=== PATIENT | female | born 1995 | race Caucasian/White ===

== ENCOUNTER 2018-07-06 12:25 | Emergency (ER) | payer BC ==
--- NOTE | 2018-07-06 13:24 | EDM.PDOC ---
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 She states she has never had pain like this before. She describes it as a "soreness" that is dull/achy in nature, can be sharp with movements or when pressure is put on it. Right now pain is minimal, but at its worst can be 7/10. She has not tried any OTC pain medications at home. Her LNMP was 07/03/18, but she did note it was heavier than usual. She denies any hematuria, dysuria, F/C, N/V/D, constipation, pain with intercourse, discharge or foul smelling odors. No concern for STD- she has same partner. Currently not on control and is sexually active. She has her first [employer] appointment with Dr. Spring in August. No h/o ovarian issues in the past. 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 [No Known Home Meds] 07/06/18 [History] Past Medical History - Past Surgical History Female Surgical History: Reports: Section Social & Family History - Tobacco Use Smoking Status *Q: Never Smoker - Caffeine Use Caffeine Use: Reports: Coffee, Soda - Recreational Drug Use Recreational Drug Use: No ED ROS GENERAL - Review of Systems Review Of Systems: ROS reveals no pertinent complaints other than HPI. ED EXAM, GI/ABD - Physical Exam Exam: See Below Exam Limited By: No Limitations General Appearance: Alert, WD/WN, No Apparent Distress Eyes: Bilateral: Normal Appearance, EOMI Ears: Normal External Exam, Hearing Grossly Normal Nose: Normal Inspection, Normal Mucosa, No Blood Throat/Mouth: Normal Inspection, Normal Lips, Normal Teeth, Normal Gums, Normal Oropharynx, Normal Voice, No Airway Compromise Neck: Normal Inspection, Supple, Non-Tender, Full Range of Motion Respiratory/Chest: No Respiratory Distress, Lungs Clear, Normal Breath Sounds, No Accessory Muscle Use, Chest Non-Tender Cardiovascular: Normal Peripheral Pulses, Regular Rate, Rhythm, No Edema, No Gallop, No JVD, No Murmur, No Rub GI/Abdominal Exam: Normal Bowel Sounds, Soft, Non-Tender, No Organomegaly, No Distention, No Abnormal Bruit, No Mass, Pelvis Stable. No: Hernia Rectal (Female) Exam: Deferred Back Exam: Normal Inspection, Full Range of Motion, NT Skin Exam: Warm, Dry, Intact, Normal Color, No Rash Course - Vital Signs Last Recorded V/S: Last Vital Signs Temp 97.8 F 07/06/18 12:40 Pulse 74 07/06/18 12:40 Resp 20 07/06/18 12:40 BP 131/81 07/06/18 12:40 Pulse Ox 100 07/06/18 12:40 - Orders/Labs/Meds Labs: Laboratory Tests 07/06/18 Range/Units 13:25 Urine HCG, Qual Negative (NEGATIVE) - Re-Assessments/Exams Free Text/Narrative Re-Assessment/Exam: 07/06/18 13:24 I have ordered Urine HCG and transvaginal U/S 07/06/18 14:17 Pelvic U/S results are back. Dr. Savage read as: 1. Incidental nabothian cyst and incidental section scar. 2. Pelvic ultrasound is otherwise unremarkable. At this time, it seems that any emergent condition has been ruled out. 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 Departure - Departure Time of Disposition: 14:19 Disposition: Home, Self-Care 01 Condition: Good Clinical Impression: Pelvic pain - Discharge Information *PRESCRIPTION DRUG MONITORING PROGRAM REVIEWED*: Not Applicable *COPY OF PRESCRIPTION DRUG MONITORING REPORT IN PATIENT ELIANA: Not Applicable Instructions: Pelvic Pain, Female Referrals: Fransisca Spring MD [Primary Care Provider] - Forms: ED Department Discharge Additional Instructions: You were seen in the ED today for left lower pelvic pain. Your physical exam and workup was benign. Your urine test was negative and your transvaginal U/S showed nothing acute. At this time, it is seems reasonable to send you home with management of pain with over the counter ibuprofen and heating pad as needed. Hernia is a possibility, though not seen today, so recommend restricting the amount of weight you lift to about 8lb until you are able to be worked up further with primary care or your symptoms have resolved. Recommend follow up with primary care provider and [employer] DEVELOPER for further workup and treatment. Please return to ED if new or worsening symptoms.
--- NOTE | 2018-07-06 14:13 | US ---
Pelvic ultrasound: Multiple real-time images were obtained transvaginally. Comparison: No previous pelvic imaging. Uterus is anteverted. Small and incidental nabothian cyst is noted. No myometrial abnormality is seen. Incidental section scar is seen anteriorly. Follicles are noted within the ovaries. No larger cyst or solid abnormality is seen within the ovaries. No free fluid is seen. Measurements: Uterus: Length 8.9 cm, transverse with 5.0 cm, AP height 4.2 cm Endometrial thickness: Normal at 8 mm Right ovary: 3.2 x 2.1 x 2.0 cm Left ovary: 2.6 x 2.6 x 2.8 cm Impression: 1. Incidental nabothian cyst and incidental section scar. 2. Pelvic ultrasound is otherwise unremarkable. Diagnostic code #2
== END 2018-07-06 14:35 | disposition home or self-care (01) ==
LOC: JD.ED 12:25 → SUPCPDRO 12:25 → JD.ED 14:35
DX: R10.2 Pelvic and perineal pain (principal)
CPT/HCPCS: 76830; 76830-26; 81025; 99282; 99284-25

== ENCOUNTER 2019-04-10 08:00 | Inpatient (IN) | payer BC ==
[~2019-04-10 08:00] MED LIST: Citric Acid/Sodium Citrate Solution 30 ML Cup PO ONE; Lactated Ringers 1,000 ML IV SCH; Metoclopramide 10 MG/2 ML SDV IVPUSH ONE; Oxytocin/Lactated Ringers 10 UNIT/1,000 ML BAG IV SCH; Sodium Chloride 0.9% 10 ML Syringe FLUSH PRN; ceFAZolin 2 GM in Premix Bag 1 BAG IV ONE
[2019-04-14] MEDS ORDERED: Ondansetron 4 MG/2 ML SDV IVPUSH PRN (07:35)
[2019-04-14] MEDS ORDERED: Nalbuphine 10 MG/ML Syringe IVPUSH PRN (07:35)
[2019-04-14] MEDS ORDERED: Sodium Chloride 0.9% 10 ML Syringe FLUSH PRN (07:35)
[2019-04-14] MEDS ORDERED: ceFAZolin 2 GM in Premix Bag 1 BAG IV ONE (07:35)
[2019-04-14] MEDS ORDERED: Citric Acid/Sodium Citrate Solution 30 ML Cup PO ONE ×2 (07:35→11:00)
[2019-04-14] MEDS ORDERED: ceFAZolin 1 GM in Premix Bag 1 BAG IV ONE (07:35)
[2019-04-14] MEDS ORDERED: Metoclopramide 10 MG/2 ML SDV IVPUSH ONE ×2 (07:35→11:00)
[2019-04-14] MEDS ORDERED: Lactated Ringers 1,000 ML IV SCH ×2 (07:45→11:00)
[2019-04-14] MEDS ORDERED: Oxytocin/Lactated Ringers 10 UNIT/1,000 ML BAG IV SCH ×2 (07:45→11:00)
[2019-04-14] MEDS ORDERED: Oxytocin 10 Units/1 ML SDV ONE (09:37)
[2019-04-14] MEDS ORDERED: Morphine PF 10 MG/10 ML SDV ONE (09:37)
[2019-04-14] MEDS ORDERED: ceFAZolin 1 GM Vial ONE ×3 (09:37→11:59)
--- NOTE | 2019-04-14 10:57 | PCM.OPNOTE ---
- General Post-Op/Procedure Note Date of Surgery/Procedure: 04/14/19 Operative Procedure(s): Repeat low transverse Findings: Moderate amount of scar tissue between rectus and fascia. Minimal scarring between bladder and JUAN. Baby boy in vertex presentation. Weight of 9 lbs 0 oz. Apgars of 8 & 9. Normal appearance of fallopian tubes and ovaries Pre Op Diagnosis: 39 6/7 wks gestation. hx of x2. BMI 48 Post-Op Diagnosis: Same Anesthesia Technique: Spinal Primary Surgeon: Fransisca Sprnig Secondary Surgeon: Javi Haile Anesthesia Provider: Jai Green Reason Human Resource Advisor Was Necessary: BMI of patient. Speed/safety of procedure Pathology: Cord blood collected. Placenta discarded Fluid Replacement, Intraop: 3,000 Output, Urine Amount: 100 EBL in mLs: 900 Complications: None Condition: Good Free Text/Narrative:: The risks, benefits, indications, potential complications, and alternatives were explained to the patient and informed consent obtained. After induction of anesthesia, the patient was placed in a supine position and then draped and prepped in the usual sterile manner. A Pfannenstiel incision was made and carried down through the subcutaneous tissue to the fascia. Fascial incision was made and extended transversely. The fascia was from the underlying rectus tissue superiorly and inferiorly. The peritoneum was identified and entered. Peritoneal incision was extended longitudinally. The utero-vesical peritoneal reflection was incised transversely and the bladder flap was bluntly freed from the lower uterine segment. A low transverse uterine incision was made sharply with a scalpel and extended bluntly in a cephalocaudad direction. A baby boy was delivered from vertex presentation with aid of vacuum extraction. APGARS as above. After the umbilical cord was clamped and cut cord blood was obtained for evaluation. The placenta was removed intact and appeared normal. The uterus was exteriorized and cleared of clots. The uterine outline, tubes and ovaries appeared normal. The uterine incision was closed with running locked sutures of 0 Vicryl. Hemostasis was obtained with an imbricating layer of 0 vicryl. The uterus was then placed back into the abdomen. The infracolic gutters were cleared of blood clots. The fascia was then reapproximated with running sutures of 1PDS. The subcutaneous tissue was irrigated with sterile warm normal saline, hemostasis obtained with cautery. This layer was closed with a running 0 Vicryl suture. The skin was reapproximated with running Subcuticular 4-0 Monocryl sutures. Instrument, sponge, and needle counts were correct prior the abdominal closure and at the conclusion of the case.
[2019-04-14] MEDS ORDERED: Phenylephrine/Normal Saline 100 MCG/ML 10 ML Syringe ONE (11:58)
[2019-04-14] MEDS ORDERED: Ketorolac 30 MG/ML SDV ONE (12:10)
[2019-04-14] MEDS ORDERED: diphenhydrAMINE 50 MG/ML SDV IVPUSH PRN ×2 (12:56→13:54)
--- NOTE | 2019-04-14 12:57 | PCM.POSTAN ---
POST ANESTHESIA ASSESSMENT - MENTAL STATUS Mental Status: Alert, Oriented - VITAL SIGNS Vital Signs: Last Vital Signs Temp 36.8 C 04/14/19 10:44 Pulse 93 04/14/19 10:44 Resp 15 04/14/19 10:44 BP 107/81 04/14/19 10:44 Pulse Ox 99 04/14/19 10:44 - RESPIRATORY Respiratory Status: Respiratory Rate WNL, Airway Patent, O2 Saturation Stable - CARDIOVASCULAR CV Status: Pulse Rate WNL, Blood Pressure Stable - GASTROINTESTINAL GI Status: No Symptoms - PAIN Pain Score: 0 - POST OP HYDRATION Hydration Status: Adequate & Stable - OBSERVATIONS Free Text/Narrative:: no anesthesia complications noted
--- NOTE | 2019-04-14 12:59 | PCM.PREANE ---
Preanesthetic Assessment - Procedure Proposed Procedure: Repeat - Anesthesia/Transfusion/Family Hx Anesthesia History: Prior Anesthesia Without Reaction Family History of Anesthesia Reaction: No Transfusion History: Prior Transfusion Without Reaction - Review of Systems General: No Symptoms Pulmonary: No Symptoms Cardiovascular: Dyspnea on Exertion Gastrointestinal: No Symptoms Neurological: Numbness ("hands possible carpal tunnel") Other: Reports: None - Physical Assessment NPO Status Date: 04/14/19 NPO Status Time: 00:00 Vital Signs: Last Vital Signs Temp 36.8 C 04/14/19 10:44 Pulse 93 04/14/19 10:44 Resp 15 04/14/19 10:44 BP 107/81 04/14/19 10:44 Pulse Ox 99 04/14/19 10:44 Height: 1.57 m Weight: 119.658 kg ASA Class: 2 Mental Status: Alert & Oriented x3 Airway Class: Mallampati = 2 Dentition: Reports: Normal Dentition Thyro-Mental Finger Breadths: 3 Mouth Opening Finger Breadths: 3 ROM/Head Extension: Full Lungs: Clear to Auscultation, Normal Respiratory Effort Cardiovascular: Regular Rate, Regular Rhythm - Lab Values: Laboratory Last Values WBC 6.52 K/mm3 (3.98-10.04) 04/14/19 10:07 RBC 4.13 M/mm3 (3.98-5.22) 04/14/19 10:07 Hgb 11.2 gm/dl (11.2-15.7) 04/14/19 10:07 Hct 33.5 % (34.1-44.9) L 04/14/19 10:07 MCV 81.1 fl (79.4-94.8) 04/14/19 10:07 MCH 27.1 pg (25.6-32.2) 04/14/19 10:07 MCHC 33.4 g/dl (32.2-35.5) 04/14/19 10:07 RDW Std Deviation 43.0 fL (36.4-46.3) 04/14/19 10:07 Plt Count 256 K/mm3 (182-369) 04/14/19 10:07 MPV 10.9 fl (9.4-12.3) 04/14/19 10:07 Blood Type AB POSITIVE 04/14/19 10:07 Gel Antibody Screen Negative 04/14/19 10:07 - Allergies Allergies/Adverse Reactions: Allergies Allergy/AdvReac Type Severity Reaction Status Date / Time No Known Allergies Allergy Verified 04/14/19 10:03 - Anesthesia Plan Pre-Op Medication Ordered: Antacids - Acknowledgements Anesthesia Type Planned: Spinal Pt an Appropriate Candidate for the Planned Anesthesia: Yes Alternatives and Risks of Anesthesia Discussed w Pt/Guardian: Yes Pt/Guardian Understands and Agrees with Anesthesia Plan: Yes PreAnesthesia Questionnaire Gastrointestinal History: Reports: GERD 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: - Past Surgical History Female Surgical History: Reports: Section Other Female Surgeries/Procedures: X2 (2014, 2012) - SUBSTANCE USE Smoking Status *Q: Former Smoker Tobacco Use Within Last Twelve Months: Cigarettes Second Hand Smoke Exposure: No Recreational Drug Use History: No - HOME MEDS Home Medications: Home Meds Calcium Carbonate [Tums] 500 mg PO ASDIRECTED PRN 04/14/19 [History] Ferrous Sulfate [Iron] 325 mg PO ASDIRECTED 04/14/19 [History] Mv-Mn/Iron/FA/Herbal/Digestive [ One Tablet] 1 tab PO DAILY 04/14/19 [ History] - CURRENT (IN HOUSE) MEDS Current Meds: Current Medications Diphenhydramine HCl (Benadryl) 25 mg IVPUSH Q6H PRN PRN Reason: Itching Lactated Ringer's (Ringers, Lactated) 1,000 mls @ 125 mls/hr IV ASDIRECTED [facility] Last Admin: 04/14/19 11:26 Dose: 125 mls/hr Oxytocin/Lactated Ringer's (Pitocin In Lr 10 Units/1,000 Ml) 10 unit in 1,000 mls @ 100 mls/hr IV ASDIRECTED [facility]; Protocol Nalbuphine HCl (Nubain) 10 mg IVPUSH Q2H PRN PRN Reason: Pain Ondansetron HCl (Zofran) 4 mg IVPUSH Q4H PRN PRN Reason: Nausea/Vomiting Sodium Chloride (Saline Flush) 10 ml FLUSH ASDIRECTED PRN PRN Reason: Keep Vein Open Discontinued Medications Cefazolin Sodium (Ancef) Confirm Administered Dose 2 gm .ROUTE .STK-MED ONE Stop: 04/14/19 11:20 Cefazolin Sodium (Ancef) Confirm Administered Dose 1 gm .ROUTE .STK-MED ONE Stop: 04/14/19 12:00 Citric Acid/Sodium Citrate (Bicitra Solution) 30 ml PO ONETIME ONE Stop: 04/10/19 06:01 Citric Acid/Sodium Citrate (Bicitra Solution) 30 ml PO ONETIME ONE Stop: 04/14/19 07:36 Last Admin: 04/14/19 11:25 Dose: 30 ml Citric Acid/Sodium Citrate (Bicitra Solution) 30 ml PO ONETIME ONE Stop: 04/14/19 11:01 Last Admin: 04/14/19 11:46 Dose: Not Given Cefazolin Sodium/Dextrose 2 gm (/ Premix) 50 mls @ 100 mls/hr IV ONETIME ONE Stop: 04/10/19 07:29 Lactated Ringer's (Ringers, Lactated) 1,000 mls @ 125 mls/hr IV ASDIRECTED [facility] Oxytocin/Lactated Ringer's (Pitocin In Lr 10 Units/1,000 Ml) 10 unit in 1,000 mls @ 100 mls/hr IV ASDIRECTED [facility]; Protocol Cefazolin Sodium/Dextrose 2 gm (/ Premix) 50 mls @ 100 mls/hr IV ONETIME ONE Stop: 04/14/19 08:04 Cefazolin Sodium/Dextrose 1 gm (/ Premix) 50 mls @ 100 mls/hr IV ONETIME ONE Stop: 04/14/19 08:04 Lactated Ringer's (Ringers, Lactated) 1,000 mls @ 125 mls/hr IV ASDIRECTED [facility] Oxytocin/Lactated Ringer's (Pitocin In Lr 10 Units/1,000 Ml) 10 unit in 1,000 mls @ 100 mls/hr IV ASDIRECTED [facility]; Protocol Ketorolac Tromethamine (Toradol) Confirm Administered Dose 30 mg .ROUTE .STK- MED ONE Stop: 04/14/19 12:11 Metoclopramide HCl (Reglan) 10 mg IVPUSH ONETIME ONE Stop: 04/10/19 06:01 Metoclopramide HCl (Reglan) 10 mg IVPUSH ONETIME ONE Stop: 04/14/19 07:36 Last Admin: 04/14/19 11:24 Dose: 10 mg Metoclopramide HCl (Reglan) 10 mg IVPUSH ONETIME ONE Stop: 04/14/19 11:01 Last Admin: 04/14/19 11:46 Dose: Not Given Phenylephrine HCl (Phenylephrine In Ns 100 Mcg/Ml) Confirm Administered Dose 1 mg .ROUTE .STK-MED ONE Stop: 04/14/19 11:59 Sodium Chloride (Saline Flush) 10 ml FLUSH ASDIRECTED PRN PRN Reason: Keep Vein Open
[2019-04-14] MEDS ORDERED: Ondansetron 4 MG/2 ML SDV IV PRN (13:54)
[2019-04-14] MEDS ORDERED: ePHEDrine 50 MG/ML SDV IVPUSH PRN (13:54)
[2019-04-14] MEDS ORDERED: Dextrose 5%-Lactated Ringers 1,000 ML IV SCH (13:54)
[2019-04-14] MEDS ORDERED: Naloxone 0.4 MG/ML SDV IVPUSH PRN (13:54)
[2019-04-14] MEDS: Ketorolac 30 MG/ML SDV IVPUSH SCH (18:27)
[2019-04-14] MEDS ORDERED: Sodium Chloride 0.9% 500 ML IV ONE (20:24)
[2019-04-14] MEDS ORDERED: Sodium Chloride 0.9% 500 ML ONE (20:26)
[2019-04-15] MEDS ORDERED: Sodium Chloride 0.9% 500 ML ONE (00:06)
[2019-04-15] MEDS ORDERED: Dextrose 5%-Lactated Ringers 1,000 ML IV SCH (00:15)
[2019-04-15] MEDS: Ketorolac 30 MG/ML SDV IVPUSH SCH ×2 (00:21→06:30)
--- NOTE | 2019-04-15 09:06 | PCM.SN ---
- Free Text/Narrative Note: note: Postoperative day #1?status post repeat section Patient is doing well in the period. Minimal lochia, voiding well, ambulated without problems. Nursing without concerns. Patient is afebrile, vital signs are stable Lungs are clear with good breath sounds in all lung londono. Cardiovascular exam shows regular rate and rhythm. Abdomen is flat, soft, uterus is below the umbilicus and is firm and nontender. Positive bowel sounds are noted. Dressing is removed. Steri-Strips are intact, incision appears dry. Legs are nontender. Assessment: recovery going well.She had a short period last evening of decreased urine output but now is diuresing well. IV is saline locked. Indwelling catheter has been removed. Plan: Routine postop care. Patient desires to be discharged home within the next 24-48 hours.
[2019-04-15] MEDS: Acetaminophen/oxyCODONE 325-5 MG Tab PO PRN ×3 (09:48→16:37)
[2019-04-15] MEDS ORDERED: Ibuprofen 600 MG Tab PO PRN (12:00)
--- NOTE | 2019-04-15 13:03 | PCM48HPAN ---
Post Anesthesia Note - EVALUATION WITHIN 48HRS OF ANESTHETIC Vital Signs in Normal Range: Yes Patient Participated in Evaluation: Yes Respiratory Function Stable: Yes Airway Patent: Yes Cardiovascular Function Stable: Yes Hydration Status Stable: Yes Pain Control Satisfactory: Yes Nausea and Vomiting Control Satisfactory: Yes Mental Status Recovered: Yes Vital Signs: Last Vital Signs Temp 36.6 C 04/15/19 08:44 Pulse 82 04/15/19 08:45 Resp 16 04/15/19 10:00 BP 101/57 L 04/15/19 08:44 Pulse Ox 97 04/15/19 10:00 - COMMENTS/OBSERVATIONS Free Text/Narrative:: no anesthesia complications noted
[2019-04-15] MEDS ORDERED: Sodium Chloride 0.9% 500 ML IV ONE (23:59)
[2019-04-16] MEDS: Acetaminophen/oxyCODONE 325-5 MG Tab PO PRN ×2 (00:31→07:53)
--- NOTE | 2019-04-16 09:44 | PCM.DCSUM1 ---
Discharge Summary - Hospital Course Free Text/Narrative:: Jesús is a 23-year-old multigravida femaleWas admitted for elective repeat section on 04/14/2019. She underwent a repeat section delivering 9 lbs. 0 oz. male infant with Apgars of 8 and 9. He 9-6/7 weeks at the time of the section. Risk factors for section for history of 2 C-sections prior to this one. Also BMI of 48. No anesthesia for the C- section. Postoperatively patient is nursing. She has had good bowel, bladder, ambulatory recovery. Her vital signs stable. On the first postoperative day her hemoglobin dropped to 8.7. She however had no signs of any hemorrhage and repeat hemoglobin on second postoperative day was 8.6 indicating stability in her system. She is doing well clinically with this anemia. The be due to blood loss anemia in addition to anemia. She has been on iron for her anemia in the preoperative period. Patient is desiring discharge home today. Condition: Good Diagnosis: Stroke: No - Discharge Data Discharge Date: 04/16/19 Discharge Disposition: Home, Self-Care 01 Condition: Good - Referral to Home Health Primary Care Physician: Fransisca Spring MD - Patient Summary/Data Operative Procedure(s) Performed: Repeat low transverse - Patient Instructions Diet: Regular Diet as Tolerated (Nursing diet with increased calories and calcium as recommended) Activity: As Tolerated (No intercourse or tampons until bleeding resolves. No lifting greater than 15 pounds or driving a car 1 week.) Driving: Do Not Drive Showering/Bathing: May Shower Wound/Incision Care: Keep Operative Site/Wound Site Clean and Dry Notify Provider of: Fever, Increased Pain, Swelling and Redness, Drainage, Nausea and/or Vomiting - Discharge Plan Home Medications: Home Meds Calcium Carbonate [Tums] 500 mg PO ASDIRECTED PRN 04/14/19 [History] Mv-Mn/Iron/FA/Herbal/Digestive [ One Tablet] 1 tab PO DAILY 04/14/19 [ History] Acetaminophen/oxyCODONE [Percocet 325-5 MG] 2 tab PO Q4H PRN tablet 04/16/19 [ Rx] Ferrous Sulfate [Iron] 325 mg PO BID #0 04/16/19 [Rx] Ibuprofen [Motrin] 600 mg PO Q6H PRN tablet 04/16/19 [Rx] Referrals: Fransisca Spring MD [Primary Care Provider] - (Patient to call [facility] for post operative appointment.) - Discharge Summary/Plan Comment DC Time >30 min.: No Discharge Summary/Plan Comment: Discharge instructions: 1. Discharge home 2. Diet, activity and follow-up discussed with patient. Recommend nursing diet with increased calories and calcium. 3. Precautions given concern increased pain, bleeding, temperature, signs/ symptoms of DVT/PE. 4. Medications per home medication was printed, discussed with and given to the patient. 5. Return to clinic-Dr. Spring, patient to call for appointment. Diagnosis: 1. Term -delivered a repeat section 2. Anemia secondary to and acute blood loss at time of surgery 3. macrosomia Condition: Good - Patient Data Vitals - Most Recent: Last Vital Signs Temp 37.1 C 04/16/19 09:00 Pulse 87 04/16/19 09:00 Resp 16 04/16/19 09:00 BP 122/81 04/16/19 09:00 Pulse Ox 99 04/16/19 09:00 Weight - Most Recent: 119.658 kg I&O - Last 24 hours: Intake & Output 04/15/19 04/16/19 04/16/19 22:59 06:59 14:59 Intake Total 60 Balance 60 Lab Results - Last 24 hrs: Laboratory Results - last 24 hr 04/16/19 Range/Units 05:01 WBC 8.43 (3.98-10.04) K/mm3 RBC 3.15 L (3.98-5.22) M/mm3 Hgb 8.6 L (11.2-15.7) gm/dl Hct 26.4 L (34.1-44.9) % MCV 83.8 (79.4-94.8) fl MCH 27.3 (25.6-32.2) pg MCHC 32.6 (32.2-35.5) g/dl RDW Std Deviation 44.0 (36.4-46.3) fL Plt Count 202 (182-369) K/mm3 MPV 10.8 (9.4-12.3) fl Neut % (Auto) 64.3 (34.0-71.1) % Lymph % (Auto) 26.5 (19.3-51.7) % [place] % (Auto) 7.6 (4.7-12.5) % Eos % (Auto) 1.2 (0.7-5.8) Baso % (Auto) 0.2 (0.1-1.2) % Neut # (Auto) 5.42 (1.56-6.13) K/mm3 Lymph # (Auto) 2.23 (1.18-3.74) K/mm3 [place] # (Auto) 0.64 H (0.24-0.36) K/mm3 Eos # (Auto) 0.10 (0.04-0.36) K/mm3 Baso # (Auto) 0.02 (0.01-0.08) K/mm3 Med Orders - Current: Current Medications Diphenhydramine HCl (Benadryl) 25 mg IVPUSH Q6H PRN PRN Reason: Itching or Nausea Ephedrine Sulfate (Ephedrine Sulfate) 5 mg IVPUSH SEECOMMENT PRN PRN Reason: Other Dextrose/Lactated Ringer's (Dextrose 5%-Lactated Ringers) 1,000 mls @ 150 mls/ hr IV ASDIRECTED [facility] Last Admin: 04/15/19 01:36 Dose: 150 mls/hr Ibuprofen (Motrin) 600 mg PO Q6H PRN PRN Reason: mild pain or fever Naloxone HCl (Narcan) 0.1 mg IVPUSH SEECOMMENT PRN PRN Reason: Respiratory Depression Ondansetron HCl (Zofran) 4 mg IV Q8H PRN PRN Reason: Nausea/Vomiting Last Admin: 04/14/19 16:58 Dose: 4 mg Oxycodone/Acetaminophen (Percocet 325-5 Mg) 2 tab PO Q4H PRN PRN Reason: Pain (severe 7-10) Last Admin: 04/16/19 07:53 Dose: 2 tab Discontinued Medications Cefazolin Sodium (Ancef) Confirm Administered Dose 2 gm .ROUTE .STK-MED ONE Stop: 04/14/19 11:20 Cefazolin Sodium (Ancef) Confirm Administered Dose 1 gm .ROUTE .STK-MED ONE Stop: 04/14/19 12:00 Citric Acid/Sodium Citrate (Bicitra Solution) 30 ml PO ONETIME ONE Stop: 04/10/19 06:01 Last Admin: 04/14/19 14:10 Dose: Not Given Citric Acid/Sodium Citrate (Bicitra Solution) 30 ml PO ONETIME ONE Stop: 04/14/19 07:36 Last Admin: 04/14/19 11:25 Dose: 30 ml Citric Acid/Sodium Citrate (Bicitra Solution) 30 ml PO ONETIME ONE Stop: 04/14/19 11:01 Last Admin: 04/14/19 11:46 Dose: Not Given Diphenhydramine HCl (Benadryl) 25 mg IVPUSH Q6H PRN PRN Reason: Itching Cefazolin Sodium/Dextrose 2 gm (/ Premix) 50 mls @ 100 mls/hr IV ONETIME ONE Stop: 04/10/19 07:29 Lactated Ringer's (Ringers, Lactated) 1,000 mls @ 125 mls/hr IV ASDIRECTED [facility] Oxytocin/Lactated Ringer's (Pitocin In Lr 10 Units/1,000 Ml) 10 unit in 1,000 mls @ 100 mls/hr IV ASDIRECTED [facility]; Protocol Cefazolin Sodium/Dextrose 2 gm (/ Premix) 50 mls @ 100 mls/hr IV ONETIME ONE Stop: 04/14/19 08:04 Last Admin: 04/14/19 14:09 Dose: Not Given Cefazolin Sodium/Dextrose 1 gm (/ Premix) 50 mls @ 100 mls/hr IV ONETIME ONE Stop: 04/14/19 08:04 Last Admin: 04/14/19 14:08 Dose: Not Given Lactated Ringer's (Ringers, Lactated) 1,000 mls @ 125 mls/hr IV ASDIRECTED [facility] Oxytocin/Lactated Ringer's (Pitocin In Lr 10 Units/1,000 Ml) 10 unit in 1,000 mls @ 100 mls/hr IV ASDIRECTED [facility]; Protocol Lactated Ringer's (Ringers, Lactated) 1,000 mls @ 125 mls/hr IV ASDIRECTED [facility] Last Admin: 04/14/19 11:26 Dose: 125 mls/hr Oxytocin/Lactated Ringer's (Pitocin In Lr 10 Units/1,000 Ml) 10 unit in 1,000 mls @ 100 mls/hr IV ASDIRECTED [facility]; Protocol Dextrose/Lactated Ringer's (Dextrose 5%-Lactated Ringers) 1,000 mls @ 125 mls/ hr IV ASDIRECTED [facility] Stop: 04/14/19 21:53 Last Infusion: 04/14/19 22:04 Dose: 125 mls/hr Sodium Chloride (Normal Saline) 500 mls @ 999 mls/hr IV ONETIME ONE Stop: 04/14/19 20:54 Last Admin: 04/14/19 20:37 Dose: 999 mls/hr Sodium Chloride (Normal Saline) Confirm Administered Dose 500 mls @ as directed .ROUTE .STK-MED ONE Stop: 04/14/19 20:27 Last Admin: 04/14/19 20:37 Dose: Not Given Sodium Chloride (Normal Saline) 500 mls @ 999 mls/hr IV ONETIME ONE Stop: 04/16/19 00:29 Sodium Chloride (Normal Saline) Confirm Administered Dose 500 mls @ as directed .ROUTE .STK-MED ONE Stop: 04/15/19 00:07 Last Admin: 04/15/19 00:51 Dose: Not Given Ketorolac Tromethamine (Toradol) Confirm Administered Dose 30 mg .ROUTE .STK- MED ONE Stop: 04/14/19 12:11 Ketorolac Tromethamine (Toradol) 30 mg IVPUSH Q6H [facility] Stop: 04/15/19 06:31 Last Admin: 04/15/19 06:30 Dose: 30 mg Metoclopramide HCl (Reglan) 10 mg IVPUSH ONETIME ONE Stop: 04/10/19 06:01 Last Admin: 04/14/19 14:10 Dose: Not Given Metoclopramide HCl (Reglan) 10 mg IVPUSH ONETIME ONE Stop: 04/14/19 07:36 Last Admin: 04/14/19 11:24 Dose: 10 mg Metoclopramide HCl (Reglan) 10 mg IVPUSH ONETIME ONE Stop: 04/14/19 11:01 Last Admin: 04/14/19 11:46 Dose: Not Given Nalbuphine HCl (Nubain) 10 mg IVPUSH Q2H PRN PRN Reason: Pain Ondansetron HCl (Zofran) 4 mg IVPUSH Q4H PRN PRN Reason: Nausea/Vomiting Phenylephrine HCl (Phenylephrine In Ns 100 Mcg/Ml) Confirm Administered Dose 1 mg .ROUTE .STK-MED ONE Stop: 04/14/19 11:59 Sodium Chloride (Saline Flush) 10 ml FLUSH ASDIRECTED PRN PRN Reason: Keep Vein Open Sodium Chloride (Saline Flush) 10 ml FLUSH ASDIRECTED PRN PRN Reason: Keep Vein Open
== END 2019-04-16 12:10 | disposition home or self-care (01) | DRG 540 ==
LOC: JD.OB 04-14 09:44
PROVIDERS: ADMIT Obstetrics & Gynecology; ATTEND Obstetrics & Gynecology
PROC: 10D00Z1 Extraction of Products of Conception, Low, Open Approach (ICD-10-PCS; principal; 2019-04-14)
DX: O34.211 Maternal care for low transverse scar from previous cesarean delivery (principal); O99.02 Anemia complicating childbirth; D62 Acute posthemorrhagic anemia; Z37.0 Single live birth; Z3A.39 39 weeks gestation of pregnancy; Z87.891 Personal history of nicotine dependence
CPT/HCPCS: 01961; 36415; 59025; 85025; 85027; 86592; 86850; 86900; 86901; A9270-GY; J0690; J1885; J2270; J2370; J2405; J2590; J2765; J7040; J7120; J7121

== ENCOUNTER 2020-01-09 20:33 | Emergency (ER) | payer BC, MEDICAID ==
--- NOTE | 2020-01-09 21:33 | EDM.PDOC ---
ED HPI GENERAL MEDICAL PROBLEM - General Chief Complaint: [employer] FIN[employer] Problem Stated Complaint: 6wks pg abdominal cramps Time Seen by Provider: 01/09/20 21:09 Source of Information: Reports: Patient History Limitations: Reports: No Limitations - History of Present Illness INITIAL COMMENTS - FREE TEXT/NARRATIVE: Mrs. Tyler is a 24-year-old woman, , who now presents the ED stating that she had a positive home test about a week ago. Her LMP was 11/20/2019, giving her a gestational age of 7 weeks 1 day by dates, with an STAN of 08/26/2020. She states that she developed pelvic cramps and had a small amount of spotting this past 01/05/2020, and has experienced intermittent pelvic cramps since, with no additional spotting. She has taken Tylenol for her di scomfort, with incomplete relief. She presented to the ED tonight because, she states, her cramps were particularly bad, and because she did not experience pelvic cramps with prior pregnancies. She has not contacted her Automobile Assembly Supervisor about her condition. Here in the ED, the patient is found to be hemodynamically stable, afebrile, saturating 98% on room air. Prior to 3 days ago, the patient denies having a recent fever, chills, sore throat, ear pain, nasal or sinus congestion, cough, dyspnea, chest pain, palpitations, nausea, vomiting, constipation, diarrhea, abdominal pain, urinary symptoms, recent weight gain or weight loss, recent bloody bowel movements or black bowel movements, recent joint aches, headaches, or rashes. The patient does not have a PCP. Her Automobile Assembly Supervisor is Dr. Fransisca pSring. The patient has an appointment to see her next week. Pelvic Pain Score (Numeric/FACES): 2 - Related Data Allergies Allergy/AdvReac Type Severity Reaction Status Date / Time No Known Allergies Allergy Verified 01/09/20 20:50 Home Meds: Home Meds Calcium Carbonate [Tums] 500 mg PO ASDIRECTED PRN 04/14/19 [History] Mv-Mn/Iron/FA/Herbal/Digestive [ One Tablet] 1 tab PO DAILY 04/14/19 [History] Acetaminophen/oxyCODONE [Percocet 325-5 MG] 2 tab PO Q4H PRN tablet 04/16/19 [ Rx] Ferrous Sulfate [Iron] 325 mg PO BID #0 04/16/19 [Rx] Ibuprofen [Motrin] 600 mg PO Q6H PRN tablet 04/16/19 [Rx] Past Medical History Gastrointestinal History: Reports: GERD (untreated) [employer] FIN[employer] History: Reports: Therapeutic (x 1) : 5 Para: 3 - Past Surgical History HEENT Surgical History: Reports: Oral Surgery (2 wisdom teeth extracted) Female Surgical History: Reports: Section (x 3) Social & Family History - Family History Family Medical History: Noncontributory - Tobacco Use Smoking Status *Q: Former Smoker Years of Tobacco use: 2 Packs/Tins Daily: 0.1 Month/Year Tobacco Last Used: Quit 2017 Second Hand Smoke Exposure: No - Alcohol Use Alcohol Use History: Yes Alcohol Use Frequency: Rarely (when not ) - Recreational Drug Use Recreational Drug Use: No - Living Situation & Occupation Living situation: Reports: (), with Family (3 sons) Occupation: Employed ([employer]) ED ROS GENERAL - Review of Systems Review Of Systems: Comprehensive ROS is negative, except as noted in HPI. ED EXAM - Physical Exam Exam: See Below Exam Limited By: No Limitations General Appearance: Alert, WD/WN, No Apparent Distress Eye Exam: Bilateral Eye: EOMI, Normal Inspection Ears: Normal External Exam, Hearing Grossly Normal Nose: Normal Inspection Throat/Mouth: Normal Inspection, Normal Lips, Normal Voice, No Airway Compromise Head: Atraumatic, Normocephalic Neck: Normal Inspection, Full Range of Motion Respiratory/Chest: No Respiratory Distress, Lungs Clear, Normal Breath Sounds, No Accessory Muscle Use Cardiovascular: Normal Peripheral Pulses, Regular Rate, Rhythm, No Edema, No Gallop, No JVD, No Murmur, No Rub GI/Abdominal Exam: Normal Bowel Sounds, Soft, Non-Tender, No Organomegaly, No Distention, No Abnormal Bruit, No Mass Back Exam: Normal Inspection, Full Range of Motion, NT Extremities: Normal Inspection, Normal Range of Motion, No Pedal Edema, Normal Capillary Refill Neurological: Alert, Oriented, Normal Cognition, No Motor/Sensory Deficits Psychiatric: Normal Affect Skin Exam: Warm, Dry, Intact, Normal Color, No Rash Course - Vital Signs Last Recorded V/S: Last Vital Signs Temp 36.9 C 01/09/20 20:47 Pulse 92 01/09/20 20:47 Resp 18 01/09/20 20:47 BP 114/81 01/09/20 20:47 Pulse Ox 98 01/09/20 20:47 - Orders/Labs/Meds Orders: Active Orders 24 hr Category Date Time Status OB Transvaginal [US] Stat Exams 01/09/20 21:29 Taken Labs: Laboratory Tests 01/09/20 Range/Units 21:45 HCG, Quant 65287.0 mIU/mL - Re-Assessments/Exams Free Text/Narrative Re-Assessment/Exam: 01/09/20 21:30 As above, the patient had a positive test last week, with an LMP of 11/20/2019, giving her a gestational age of 7 weeks 1 day by dates, with an STAN of 08/26/2020. She reports having some pelvic cramps and spotting on 01/05/2020, with intermittent cramps without spotting since. She is hemodynamically stable, and her physical exam is unremarkable. Her blood type is AB+. I have ordered a work-up that includes a quantitative hCG and a pelvic ultrasound, along with a send-out swab for the SARS-CoV-2 virus. 01/09/20 22:52 The patient's quantitative hCG is 19,483. Pelvic ultrasound is read by [facility] as: 1. Sonographic features suggest an early intrauterine gestation at approximately 6 weeks gestational age. Cardiac activity is documented at 112 bpm. 2. Recommend follow-up beta HCG and follow-up ultrasound to evaluate for normal progression of this early gestation. 01/09/20 23:31 Test results discussed with the patient. I will discharge her home, to follow- up with Dr. Spring at her previously scheduled appointment next week. She may take [id number] acetaminophen as needed for discomfort. Departure - Departure Time of Disposition: 23:32 Disposition: Home, Self-Care 01 Condition: Good Clinical Impression: First trimester , Discomfort during - Discharge Information *PRESCRIPTION DRUG MONITORING PROGRAM REVIEWED*: Not Applicable *COPY OF PRESCRIPTION DRUG MONITORING REPORT IN PATIENT ELIANA: Not Applicable Instructions: First Trimester of , [id number] Referrals: Fransisca Spring MD [Primary Care Provider] - Forms: ED Department Discharge Additional Instructions: You were seen in the emergency room after having a positive test last week, then experiencing pelvic cramps and spotting 3 days ago, then pelvic cramps ever since. Work-up in the ER included a quantitative hCG ( hormone level) and a pelvic ultrasound. You were also swabbed for the SARS-CoV-2 virus. Your quantitative hCG returned at 19,483, which is appropriate for your gestational age. Your blood type is AB-Pos. The pelvic ultrasound confirmed an intrauterine , and ruled out an ectopic . At this time, the estimated gestational age is 6 weeks, however, at this early stage of , the estimation is not all that accurate. You will be notified of the results of your test for the SARS-CoV-2 virus within the next 48 to 72 hours. You may take mlhg-tuj-trjaule acetaminophen (Tylenol) as needed for discomfort. Continue to take your vitamins. Make sure that they contain folate or folic acid. Follow-up with your SHEET ROCK FINISHER, Dr. Fransisca Spring, at your previously scheduled appointment, next week. If any other problems, please do not hesitate to return to the ER. Sepsis Event Note (ED) - Evaluation Sepsis Screening Result: No Definite Risk - Focused Exam Vital Signs: Vital Signs Temp Pulse Resp BP Pulse Ox 01/09/20 20:47 36.9 C 92 18 114/81 98 - My Orders Last 24 Hours: My Active Orders 01/09/20 21:29 OB Transvaginal [US] Stat - Assessment/Plan Last 24 Hours: My Active Orders 01/09/20 21:29 OB Transvaginal [US] Stat
--- NOTE | 2020-01-10 06:20 | US ---
First trimester obstetrical ultrasound: Multiple real-time images were obtained transvaginally. Comparison: No prior study for current is available. Dates: Current ultrasound: STAN is 09/04/20, gestational age 5 weeks 6 days Single intrauterine gestational sac is seen. Small pole is noted. Maternal ovaries show no discrete abnormality. Measurements: [place]-rump length: 0.25 cm - 5 weeks 6 days Heart rate: 112 bpm Impression: Single intrauterine gestation. Dates as noted above. 2. No discrete complicating abnormality is seen at this time. 3. Recommend follow-up study in 2 weeks to confirm normal developing . Diagnostic code #1 This report was dictated in MDT I agree with preliminary report from [place], finalized on 01/09/20 [place] Daylight Time
== END 2020-01-09 23:42 | disposition home or self-care (01) ==
LOC: JD.ED 20:33
DX: O99.89 Other specified diseases and conditions complicating pregnancy, childbirth and the puerperium (principal); R10.2 Pelvic and perineal pain; Z87.891 Personal history of nicotine dependence; Z3A.01 Less than 8 weeks gestation of pregnancy
CPT/HCPCS: 36415; 76817; 76817-26; 84702; 99282; 99284-25

== ENCOUNTER 2020-08-29 05:10 | Inpatient (IN) | payer MEDICAID ==
[~2020-08-29 05:10] MED LIST changes: -Citric Acid/Sodium Citrate Solution 30 ML Cup PO ONE; -Lactated Ringers 1,000 ML IV SCH; -Metoclopramide 10 MG/2 ML SDV IVPUSH ONE; -Oxytocin/Lactated Ringers 10 UNIT/1,000 ML BAG IV SCH; -ceFAZolin 2 GM in Premix Bag 1 BAG IV ONE
[2020-08-29] MEDS: Lactated Ringers 1,000 ML IV SCH ×2 (05:38→06:38)
[2020-08-29] MEDS ORDERED: Citric Acid/Sodium Citrate Solution 30 ML Cup PO ONE (06:30)
[2020-08-29] MEDS ORDERED: Metoclopramide 10 MG/2 ML SDV IVPUSH ONE (06:30)
[2020-08-29] MEDS ORDERED: ceFAZolin 1 GM Vial ONE (07:13)
[2020-08-29] MEDS ORDERED: Lactated Ringers 2,000 ML ONE (07:13)
[2020-08-29] MEDS ORDERED: Ketorolac 30 MG/ML SDV ONE (07:13)
[2020-08-29] MEDS ORDERED: Morphine PF 10 MG/10 ML SDV ONE (07:13)
[2020-08-29] MEDS ORDERED: Ondansetron 4 MG/2 ML SDV ONE (07:13)
[2020-08-29] MEDS ORDERED: Oxytocin 10 Units/1 ML SDV ONE (07:13)
[2020-08-29] MEDS ORDERED: ceFAZolin 2 GM in Premix Bag 1 BAG IV ONE (07:45)
[2020-08-29] MEDS ORDERED: Oxytocin/Lactated Ringers 10 UNIT/1,000 ML BAG IV SCH (08:00)
[2020-08-29] MEDS ORDERED: fentaNYL 100 MCG/2 ML SDV ONE (08:06)
[2020-08-29] MEDS ORDERED: Ondansetron 4 MG/2 ML SDV IVPUSH PRN ×2 (08:13→16:32)
[2020-08-29] MEDS ORDERED: diphenhydrAMINE 50 MG/ML SDV IVPUSH PRN ×2 (08:13→10:15)
[2020-08-29] MEDS ORDERED: fentaNYL 100 MCG/2 ML SDV IVPUSH PRN (08:13)
--- NOTE | 2020-08-29 08:43 | PCM.OPNOTE ---
- General Post-Op/Procedure Note Date of Surgery/Procedure: 08/29/20 Operative Procedure(s): Repeat low transverse Findings: Significant amount of scar tissue between the rectus and fascia. Relatively thin lower uterine segment. Baby Girl in a vertex presentation. APGARS of 8 & 9. Weight of 3430 grams. Pre Op Diagnosis: History of x3. Anemia of . 39 1/7 wks Post-Op Diagnosis: Same Anesthesia Technique: Spinal Primary Surgeon: Fransisca Spring Secondary Surgeon: Maria T Joseph Anesthesia Provider: Nury Davis Reason Material Movers Was Necessary: BMI of patient. Speed and safety of procedure Pathology: Cord blood collected. Placenta discarded Fluid Replacement, Intraop: 2,300 Output, Urine Amount: 100 EBL in mLs: 850 Complications: None Condition: Good Free Text/Narrative:: The risks, benefits, indications, potential complications, and alternatives were explained to the patient and informed consent obtained. After induction of anesthesia, the patient was placed in a supine position and then draped and prepped in the usual sterile manner. A Pfannenstiel incision was made and carried down through the subcutaneous tissue to the fascia. Fascial incision was made and extended transversely. The fascia was from the underlying rectus tissue superiorly and inferiorly. The peritoneum was identified and entered. Peritoneal incision was extended longitudinally. The utero-vesical peritoneal reflection was incised transversely and the bladder flap was bluntly freed from the lower uterine segment. Relatively thin lower uterine segment noted. A low transverse uterine incision was made sharply with a scalpel and extended bluntly in a cephalocaudad direction. A baby girl was delivered from a vertex presentation with APGARS as above. After the umbilical cord was clamped and cut cord blood was obtained for evaluation. The placenta was removed intact and appeared normal. The uterus was exteriorized and cleared of clots. The uterine outline, tubes and ovaries appeared normal. The uterine incision was closed with running locked sutures of 0 Vicryl. Hemostasis was noted. The uterus was then placed back into the abdomen. The infracolic gutters were cleared of blood clots. The fascia was then reapproximated with running sutures of 1 PDS. The subcutaneous tissue was irrigated with sterile warm normal saline, hemostasis obtained with cautery. This layer was closed with two sutures of 0 Vicryl. The skin was reapproximated with running Subcuticular 4-0 monocryl sutures and sealed with Dermabond. Instrument, sponge, and needle counts were correct prior the abdominal closure and at the conclusion of the case.
--- NOTE | 2020-08-29 08:46 | PCM.POSTAN ---
POST ANESTHESIA ASSESSMENT - MENTAL STATUS Mental Status: Alert, Oriented - VITAL SIGNS Vital Signs: Last Vital Signs Temp 36.2 C 08/29/20 05:25 Pulse 88 08/29/20 05:25 Resp 14 08/29/20 05:25 BP 111/81 08/29/20 05:25 Pulse Ox 99 08/29/20 05:25 0839 112/59 83 18 100% 97.4F - RESPIRATORY Respiratory Status: Respiratory Rate WNL, Airway Patent, O2 Saturation Stable - CARDIOVASCULAR CV Status: Pulse Rate WNL, Blood Pressure Stable - GASTROINTESTINAL GI Status: No Symptoms - PAIN Pain Score: 0 - POST OP HYDRATION Hydration Status: Adequate & Stable
--- NOTE | 2020-08-29 08:46 | PCM.PREANE ---
Preanesthetic Assessment - Procedure Proposed Procedure: Repeat C Section (4th) - Anesthesia/Transfusion/Family Hx Anesthesia History: No Prior Anesthesia Family History of Anesthesia Reaction: No Transfusion History: No Prior Transfusion(s) - Review of Systems General: No Symptoms Pulmonary: No Symptoms Cardiovascular: No Symptoms Gastrointestinal: Other (GERD, symptoms this am resolved with Bicitra. ) Neurological: No Symptoms Other: Reports: None (BMI 43) - Physical Assessment NPO Status Date: 08/28/20 NPO Status Time: 23:00 Vital Signs: Last Vital Signs Temp 36.2 C 08/29/20 05:25 Pulse 88 08/29/20 05:25 Resp 14 08/29/20 05:25 BP 111/81 08/29/20 05:25 Pulse Ox 99 08/29/20 05:25 Height: 1.57 m Weight: 107.728 kg ASA Class: 3 Mental Status: Alert & Oriented x3 Airway Class: Mallampati = 2 Dentition: Reports: Normal Dentition Thyro-Mental Finger Breadths: 3 Mouth Opening Finger Breadths: 3 ROM/Head Extension: Full Lungs: Clear to Auscultation, Normal Respiratory Effort Cardiovascular: Regular Rate, Regular Rhythm - Lab Values: Laboratory Last Values WBC 7.71 K/mm3 (3.98-10.04) 08/29/20 05:55 RBC 3.66 M/mm3 (3.98-5.22) L 08/29/20 05:55 Hgb 9.3 gm/dl (11.2-15.7) L 08/29/20 05:55 Hct 29.4 % (34.1-44.9) L 08/29/20 05:55 MCV 80.3 fl (79.4-94.8) D 08/29/20 05:55 MCH 25.4 pg (25.6-32.2) L 08/29/20 05:55 MCHC 31.6 g/dl (32.2-35.5) L 08/29/20 05:55 RDW Std Deviation 41.9 fL (36.4-46.3) 08/29/20 05:55 Plt Count 257 K/mm3 (182-369) 08/29/20 05:55 MPV 10.4 fl (9.4-12.3) 08/29/20 05:55 Neut % (Auto) 59.9 % (34.0-71.1) 08/29/20 05:55 Lymph % (Auto) 30.4 % (19.3-51.7) 08/29/20 05:55 [place] % (Auto) 7.5 % (4.7-12.5) 08/29/20 05:55 Eos % (Auto) 1.4 (0.7-5.8) 08/29/20 05:55 Baso % (Auto) 0.4 % (0.1-1.2) 08/29/20 05:55 Neut # (Auto) 4.62 K/mm3 (1.56-6.13) 08/29/20 05:55 Lymph # (Auto) 2.34 K/mm3 (1.18-3.74) 08/29/20 05:55 [place] # (Auto) 0.58 K/mm3 (0.24-0.36) H 08/29/20 05:55 Eos # (Auto) 0.11 K/mm3 (0.04-0.36) 08/29/20 05:55 Baso # (Auto) 0.03 K/mm3 (0.01-0.08) 08/29/20 05:55 SARS-CoV-2 RNA (VINI) Negative (NEGATIVE) 08/29/20 05:45 Blood Type AB POSITIVE 08/29/20 05:55 Gel Antibody Screen Negative 08/29/20 05:55 - Allergies Allergies/Adverse Reactions: Allergies Allergy/AdvReac Type Severity Reaction Status Date / Time No Known Allergies Allergy Verified 08/28/20 15:34 - Anesthesia Plan Pre-Op Medication Ordered: Antacids - Acknowledgements Anesthesia Type Planned: Spinal Pt an Appropriate Candidate for the Planned Anesthesia: Yes Alternatives and Risks of Anesthesia Discussed w Pt/Guardian: Yes Pt/Guardian Understands and Agrees with Anesthesia Plan: Yes PreAnesthesia Questionnaire HEENT History: Reports: Other (See Below) Other HEENT History: Wears glasses Gastrointestinal History: Reports: GERD 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: Reports: , Other (See Below) Other OB/BYN History: single umbilical artery-current Endocrine/Metabolic History: Reports: Obesity/BMI 30+ - Past Surgical History HEENT Surgical History: Reports: Oral Surgery Female Surgical History: Reports: Section Other Female Surgeries/Procedures: 2012, 2015, 2019 - SUBSTANCE USE Tobacco Use Status *Q: Former Tobacco User Recreational Drug Use History: No - HOME MEDS Home Medications: Home Meds Calcium Carbonate [Tums] 500 mg PO ASDIRECTED PRN 04/14/19 [History] Mv-Mn/Iron/FA/Herbal/Digestive [ One Tablet] 1 tab PO DAILY 04/14/19 [History] Ferrous Sulfate [Iron] 325 mg PO BID #0 04/16/19 [Rx] - CURRENT (IN HOUSE) MEDS Current Meds: Current Medications Diphenhydramine HCl (Diphenhydramine 50 Mg/Ml Sdv) 25 mg IVPUSH Q6H PRN PRN Reason: Pruritis Fentanyl (Fentanyl 100 Mcg/2 Ml Sdv) 50 mcg IVPUSH Q5M PRN PRN Reason: Pain Lactated Ringer's (Ringers, Lactated) 1,000 mls @ 125 mls/hr IV ASDIRECTED [facility] Last Admin: 08/29/20 06:38 Dose: 125 mls/hr Documented by: Oxytocin/Lactated Ringer's (Pitocin In Lr 10 Units/1,000 Ml) 10 unit in 1,000 mls @ 100 mls/hr IV ASDIRECTED [facility] Ondansetron HCl (Ondansetron 4 Mg/2 Ml Sdv) 4 mg IVPUSH ONETIME PRN PRN Reason: Nausea/Vomiting Sodium Chloride (Sodium Chloride 0.9% 10 Ml Syringe) 10 ml FLUSH ASDIRECTED PRN PRN Reason: Keep Vein Open Discontinued Medications Cefazolin Sodium (Cefazolin 1 Gm Vial) Confirm Administered Dose 2 gm .ROUTE .STK-MED ONE Stop: 08/29/20 07:14 Citric Acid/Sodium Citrate (Citric Acid/Sodium Citrate Solution 30 Ml Cup) 30 ml PO ONETIME ONE Stop: 08/29/20 06:31 Last Admin: 08/29/20 07:23 Dose: 30 ml Documented by: Fentanyl (Fentanyl 100 Mcg/2 Ml Sdv) Confirm Administered Dose 100 mcg .ROUTE .STK-MED ONE Stop: 08/29/20 08:07 Cefazolin Sodium/Dextrose 2 gm (/ Premix) 50 mls @ 100 mls/hr IV ONETIME ONE Stop: 08/29/20 08:14 Lactated Ringer's (Ringers, Lactated) Confirm Administered Dose 2,000 mls @ as directed .ROUTE .STK-MED ONE Stop: 08/29/20 07:14 Ketorolac Tromethamine (Ketorolac 30 Mg/Ml Sdv) Confirm Administered Dose 30 mg .ROUTE .STK-MED ONE Stop: 08/29/20 07:14 Metoclopramide HCl (Metoclopramide 10 Mg/2 Ml Sdv) 10 mg IVPUSH ONETIME ONE Stop: 08/29/20 06:31 Last Admin: 08/29/20 07:23 Dose: 10 mg Documented by: Miscellaneous Medication (Phenylephrine Hcl In 0.9% Nacl 1 Mg/10 Ml Syringe) Confirm Administered Dose 1 mg .ROUTE .STK-MED ONE Stop: 08/29/20 07:49 Morphine Sulfate (Morphine Pf 10 Mg/10 Ml Sdv) Confirm Administered Dose 10 mg .ROUTE .STK-MED ONE Stop: 08/29/20 07:14 Ondansetron HCl (Ondansetron 4 Mg/2 Ml Sdv) Confirm Administered Dose 4 mg .ROUTE .STK-MED ONE Stop: 08/29/20 07:14 Oxytocin (Oxytocin 10 Units/1 Ml Sdv) Confirm Administered Dose 20 unit .ROUTE .STK-MED ONE Stop: 08/29/20 07:14
[2020-08-29] MEDS ORDERED: Dextrose 5%-Lactated Ringers 1,000 ML IV SCH (10:15)
[2020-08-29] MEDS ORDERED: ePHEDrine 50 MG/ML SDV IVPUSH PRN (10:15)
[2020-08-29] MEDS ORDERED: Docusate Sodium 100 MG Cap PO PRN (10:15)
[2020-08-29] MEDS ORDERED: Acetaminophen/oxyCODONE 325-5 MG Tab PO PRN ×2 (10:15)
[2020-08-29] MEDS: Ketorolac 30 MG/ML SDV IVPUSH SCH ×2 (14:30→20:20)
[2020-08-29] MEDS ORDERED: Lactated Ringers 500 ML IV ONE (16:31)
[2020-08-30] MEDS: Ketorolac 30 MG/ML SDV IVPUSH SCH (02:27)
--- NOTE | 2020-08-30 07:24 | PCM.PNPP ---
- General Info Date of Service: 08/30/20 Functional Status: Reports: Pain Controlled, Tolerating Diet, Ambulating, Urinating - Review of Systems General: Reports: No Symptoms Pulmonary: Reports: No Symptoms Cardiovascular: Reports: No Symptoms Gastrointestinal: Reports: Abdominal Pain Genitourinary: Reports: No Symptoms Musculoskeletal: Reports: No Symptoms Neurological: Reports: No Symptoms - Patient Data Vital Signs - Most Recent: Last Vital Signs Temp 36.6 C 08/29/20 20:25 Pulse 69 08/29/20 20:25 Resp 14 08/29/20 21:43 BP 108/72 08/29/20 20:25 Pulse Ox 99 08/29/20 21:43 Weight - Most Recent: 107.728 kg I&O - Last 24 Hours: Intake & Output 08/29/20 08/30/20 08/30/20 22:59 06:59 14:59 Intake Total 440 Output Total 92 * Balance -46) Lab Results - Last 24 Hours: Laboratory Results - last 24 hr 08/29/20 08/29/20 08/30/20 Range/Units 05:45 05:55 04:39 WBC 6.88 (3.98-10.04) K/mm3 RBC 3.52 L (3.98-5.22) M/mm3 Hgb 8.8 L (11.2-15.7) gm/dl Hct 28.3 L (34.1-44.9) % MCV 80.4 (79.4-94.8) fl MCH 25.0 L (25.6-32.2) pg MCHC 31.1 L (32.2-35.5) g/dl RDW Std Deviation 41.3 (36.4-46.3) fL Plt Count 202 (182-369) K/mm3 MPV 10.7 (9.4-12.3) fl RPR Non-reactive (NONREACTIVE) SARS-CoV-2 RNA (VINI) Negative (NEGATIVE) Med Orders - Current: Current Medications Diphenhydramine HCl (Diphenhydramine 50 Mg/Ml Sdv) 25 mg IVPUSH Q6H PRN PRN Reason: Pruritis Diphenhydramine HCl (Diphenhydramine 50 Mg/Ml Sdv) 25 mg IVPUSH Q6H PRN PRN Reason: Itching or Nausea Docusate Sodium (Docusate Sodium 100 Mg Cap) 100 mg PO Q12H PRN PRN Reason: Constipation Ephedrine Sulfate (Ephedrine 50 Mg/Ml Sdv) 5 mg IVPUSH SEECOMMENT PRN PRN Reason: Other Fentanyl (Fentanyl 100 Mcg/2 Ml Sdv) 50 mcg IVPUSH Q5M PRN PRN Reason: Pain Ibuprofen (Ibuprofen 600 Mg Tab) 600 mg PO Q6H PRN PRN Reason: mild pain or fever Ondansetron HCl (Ondansetron 4 Mg/2 Ml Sdv) 4 mg IVPUSH ONETIME PRN PRN Reason: Nausea/Vomiting Last Admin: 08/29/20 13:17 Dose: 4 mg Documented by: Ondansetron HCl (Ondansetron 4 Mg/2 Ml Sdv) 4 mg IVPUSH Q4H PRN PRN Reason: Nausea/Vomiting Last Admin: 08/29/20 16:44 Dose: 4 mg Documented by: Oxycodone/Acetaminophen (Acetaminophen/Oxycodone 325-5 Mg Tab) 1 tab PO Q4H PRN PRN Reason: Pain (moderate 4-6) Oxycodone/Acetaminophen (Acetaminophen/Oxycodone 325-5 Mg Tab) 2 tab PO Q4H PRN PRN Reason: Pain (severe 7-10) Discontinued Medications Cefazolin Sodium (Cefazolin 1 Gm Vial) Confirm Administered Dose 2 gm .ROUTE .STK-MED ONE Stop: 08/29/20 07:14 Citric Acid/Sodium Citrate (Citric Acid/Sodium Citrate Solution 30 Ml Cup) 30 ml PO ONETIME ONE Stop: 08/29/20 06:31 Last Admin: 08/29/20 07:23 Dose: 30 ml Documented by: Fentanyl (Fentanyl 100 Mcg/2 Ml Sdv) Confirm Administered Dose 100 mcg .ROUTE .STK-MED ONE Stop: 08/29/20 08:07 Lactated Ringer's (Ringers, Lactated) 1,000 mls @ 125 mls/hr IV ASDIRECTED [facility] Last Admin: 08/29/20 06:38 Dose: 125 mls/hr Documented by: Cefazolin Sodium/Dextrose 2 gm (/ Premix) 50 mls @ 100 mls/hr IV ONETIME ONE Stop: 08/29/20 08:14 Last Admin: 08/29/20 10:14 Dose: Not Given Documented by: Oxytocin/Lactated Ringer's (Pitocin In Lr 10 Units/1,000 Ml) 10 unit in 1,000 mls @ 100 mls/hr IV ASDIRECTED [facility] Lactated Ringer's (Ringers, Lactated) Confirm Administered Dose 2,000 mls @ as directed .ROUTE .STK-MED ONE Stop: 08/29/20 07:14 Dextrose/Lactated Ringer's (Dextrose 5%-Lactated Ringers) 1,000 mls @ 125 mls/hr IV ASDIRECTED [facility] Stop: 08/29/20 18:14 Last Admin: 08/29/20 12:09 Dose: 125 mls/hr Documented by: Lactated Ringer's (Ringers, Lactated) 500 mls @ 250 mls/hr IV ONETIME ONE Stop: 08/29/20 18:30 Last Admin: 08/29/20 16:47 Dose: 250 mls/hr Documented by: Ketorolac Tromethamine (Ketorolac 30 Mg/Ml Sdv) Confirm Administered Dose 30 mg .ROUTE .STK-MED ONE Stop: 08/29/20 07:14 Ketorolac Tromethamine (Ketorolac 30 Mg/Ml Sdv) 30 mg IVPUSH Q6H [facility] Stop: 08/30/20 02:31 Last Admin: 08/30/20 02:27 Dose: 30 mg Documented by: Metoclopramide HCl (Metoclopramide 10 Mg/2 Ml Sdv) 10 mg IVPUSH ONETIME ONE Stop: 08/29/20 06:31 Last Admin: 08/29/20 07:23 Dose: 10 mg Documented by: Miscellaneous Medication (Phenylephrine Hcl In 0.9% Nacl 1 Mg/10 Ml Syringe) Confirm Administered Dose 1 mg .ROUTE .STK-MED ONE Stop: 08/29/20 07:49 Morphine Sulfate (Morphine Pf 10 Mg/10 Ml Sdv) Confirm Administered Dose 10 mg .ROUTE .STK-MED ONE Stop: 08/29/20 07:14 Ondansetron HCl (Ondansetron 4 Mg/2 Ml Sdv) Confirm Administered Dose 4 mg .ROUTE .STK-MED ONE Stop: 08/29/20 07:14 Oxytocin (Oxytocin 10 Units/1 Ml Sdv) Confirm Administered Dose 20 unit .ROUTE .STK-MED ONE Stop: 08/29/20 07:14 Sodium Chloride (Sodium Chloride 0.9% 10 Ml Syringe) 10 ml FLUSH ASDIRECTED PRN PRN Reason: Keep Vein Open - Infant Interaction Infant Disposition, : in Room with Family Interaction: Holding Infant Infant Feeding: Attempted ; Nursed Fair/Poor, Bottle Fed Support Person: Other (see below) - Recovery Exam Fundal Tone: Firm Fundal Level: 1 Fingerbreadths Above Umbilicus Fundal Placement: Midline Lochia Amount: Small Lochia Color: Rubra/Red Perineum Description: Intact, Minimal Bruising/Swelling Episiotomy/Laceration: None Bladder Status: Voiding Urinary Elimination: Voided - Exam General: Alert, Oriented Lungs: Clear to Auscultation, Normal Respiratory Effort Cardiovascular: Regular Rate, Regular Rhythm GI/Abdominal Exam: Soft, Tender (appropriate ) Extremities: Normal Inspection Skin: Warm, Dry, Intact Wound/Incisions: Healing Well, No Drainage - Problem List & Annotations (1) 39 weeks gestation of SNOMED Code(s): 50034871 Code(s): Z3A.39 - 39 WEEKS GESTATION OF Status: Acute Current Visit: Yes (2) History of SNOMED Code(s): 383345656 Code(s): Z98.891 - HISTORY OF UTERINE SCAR FROM PREVIOUS SURGERY Status: Acute Current Visit: Yes (3) Anemia affecting SNOMED Code(s): 85734393 Code(s): O99.019 - ANEMIA COMPLICATING , UNSPECIFIED TRIMESTER Status: Acute Current Visit: Yes Qualifiers: Trimester: third trimester Qualified Code(s): O99.013 - Anemia complicating , third trimester (4) Status post repeat low transverse section SNOMED Code(s): 632532349, 25209579, 083871719, 626534548, 219963975 Code(s): Z98.891 - HISTORY OF UTERINE SCAR FROM PREVIOUS SURGERY Status: Acute Current Visit: Yes - Problem List Review Problem List Initiated/Reviewed/Updated: Yes - My Orders Last 24 Hours: My Active Orders 08/29/20 10:15 Acetaminophen/oxyCODONE [Percocet 325-5 MG] 1 tab PO Q4H PRN Acetaminophen/oxyCODONE [Percocet 325-5 MG] 2 tab PO Q4H PRN Docusate Sodium [Colace] 100 mg PO Q12H PRN diphenhydrAMINE [Benadryl] 25 mg IVPUSH Q6H PRN ePHEDrine [ePHEDrine sulfate] 5 mg IVPUSH SEECOMMENT PRN 08/29/20 10:15 Activity as Tolerated [RC] .Routine Antiembolic Devices [RC] PER UNIT ROUTINE Communication Order [RC] PER UNIT ROUTINE Intake and Output [RC] Q4HR May Shower [RC] PER UNIT ROUTINE Notify Provider Intake and Out [RC] ASDIRECTED RT Incentive Spirometry [RC] Q2HWA Assess Lochia [WOMSER] Per Unit Routine Assess Uterine Involution [WOMSER] Per Unit Routine Breast Pump [WOMSER] Per Unit Routine Heat Therapy [OM.PC] Per Unit Routine Peripheral IV Discontinue [OM.PC] Routine Sequential Compression Device [OM.PC] Per Unit Routine 08/29/20 Lunch Regular Diet [DIET] 08/29/20 13:42 Consult to Case Management/Coach Cleaner [CONS] Routine 08/29/20 16:32 Ondansetron [Zofran] 4 mg IVPUSH Q4H PRN 08/30/20 08:30 Ibuprofen [Motrin] 600 mg PO Q6H PRN 08/30/20 08:44 Urinary Catheter Removal [RC] Per Unit Routine - Assessment Assessment:: POD#1 - Plan Plan:: * Routine cares * Hb actually quite stable compared to initial value on admission of 9.3. Today's value 8.8 and feels well . No further monitoring needed. Continue PNV and iron on discharge * Breast feeding with some supplementation * Discharge home in 1-2 days
--- NOTE | 2020-08-30 08:36 | PCM48HPAN ---
Post Anesthesia Note - EVALUATION WITHIN 48HRS OF ANESTHETIC Vital Signs in Normal Range: Yes Patient Participated in Evaluation: Yes Respiratory Function Stable: Yes Airway Patent: Yes Cardiovascular Function Stable: Yes Hydration Status Stable: Yes Pain Control Satisfactory: Yes Nausea and Vomiting Control Satisfactory: Yes Mental Status Recovered: Yes Vital Signs: Last Vital Signs Temp 36.8 C 08/30/20 06:11 Pulse 77 08/30/20 06:11 Resp 15 08/30/20 07:00 BP 101/73 08/30/20 06:11 Pulse Ox 97 08/30/20 07:00
[2020-08-30] MEDS: Ibuprofen 600 MG Tab PO PRN (18:29)
[2020-08-31] MEDS: Ibuprofen 600 MG Tab PO PRN ×2 (00:41→12:01)
--- NOTE | 2020-08-31 06:26 | PCM.DCSUM1 ---
Discharge Summary - Hospital Course Free Text/Narrative:: Jesús is a 24-year-old female who underwent repeat section on 08/29/2020. Please see admission history and physical for details. Please see operative report for postoperative details. Diagnosis: Stroke: No - Discharge Data Discharge Date: 08/31/20 Discharge Disposition: Home, Self-Care 01 Condition: Good - Referral to Home Health Primary Care Physician: Fransisca Sprign MD - Patient Summary/Data Operative Procedure(s) Performed: Repeat low transverse Consults: Consultations 08/29/20 13:42 Consult to Case Management/Family Service Assistant [CONS] Routine - Patient Instructions Diet: Regular Diet as Tolerated Activity: As Tolerated (No intercourse or tampons till bleeding resolves. No lifting greater 15 pounds or driving a car x1 week.) Driving: Do Not Drive Showering/Bathing: May Shower Wound/Incision Care: Keep Operative Site/Wound Site Clean and Dry Notify Provider of: Fever, Increased Pain, Swelling and Redness, Nausea and/or Vomiting - Discharge Plan Home Medications: Home Meds Calcium Carbonate [Tums] 500 mg PO ASDIRECTED PRN 04/14/19 [History] Mv-Mn/Iron/FA/Herbal/Digestive [ One Tablet] 1 tab PO DAILY 04/14/19 [History] Ferrous Sulfate [Iron] 325 mg PO BID #0 04/16/19 [Rx] Acetaminophen/oxyCODONE [Percocet 325-5 MG] 2 tab PO Q4H PRN tablet 08/31/20 [Rx] Ibuprofen [Motrin] 600 mg PO Q6H PRN tablet 08/31/20 [Rx] Referrals: Fransisca Spring MD [Primary Care Provider] - - Discharge Summary/Plan Comment DC Time >30 min.: No Discharge Summary/Plan Comment: Discharge instructions: 1. Discharge home 2. Diet, activity and follow-up discussed with patient. Recommend nursing diet with increased calories and calcium. 3. Precautions given concern increased pain, bleeding, temperature, signs/symptoms of DVT/PE. 4. Medications per home medication was printed, discussed with and given to the patient. 5. [facility]. Diagnosis: 1. Term -history of previous section with desire for repeat section-delivered by repeat section Condition: Good - Patient Data Vitals - Most Recent: Last Vital Signs Temp 36.7 C 08/30/20 21:01 Pulse 75 08/30/20 21:01 Resp 15 08/30/20 21:01 BP 115/65 08/30/20 21:01 Pulse Ox 99 08/30/20 21:01 Weight - Most Recent: 107.728 kg I&O - Last 24 hours: Intake & Output 08/30/20 08/30/20 08/31/20 14:59 22:59 06:59 Output Total 350 100 Balance -350 -100 Med Orders - Current: Current Medications Diphenhydramine HCl (Diphenhydramine 50 Mg/Ml Sdv) 25 mg IVPUSH Q6H PRN PRN Reason: Pruritis Diphenhydramine HCl (Diphenhydramine 50 Mg/Ml Sdv) 25 mg IVPUSH Q6H PRN PRN Reason: Itching or Nausea Docusate Sodium (Docusate Sodium 100 Mg Cap) 100 mg PO Q12H PRN PRN Reason: Constipation Last Admin: 08/31/20 00:41 Dose: 100 mg Documented by: Ephedrine Sulfate (Ephedrine 50 Mg/Ml Sdv) 5 mg IVPUSH SEECOMMENT PRN PRN Reason: Other Fentanyl (Fentanyl 100 Mcg/2 Ml Sdv) 50 mcg IVPUSH Q5M PRN PRN Reason: Pain Ibuprofen (Ibuprofen 600 Mg Tab) 600 mg PO Q6H PRN PRN Reason: mild pain or fever Last Admin: 08/31/20 00:41 Dose: 600 mg Documented by: Ondansetron HCl (Ondansetron 4 Mg/2 Ml Sdv) 4 mg IVPUSH ONETIME PRN PRN Reason: Nausea/Vomiting Last Admin: 08/29/20 13:17 Dose: 4 mg Documented by: Ondansetron HCl (Ondansetron 4 Mg/2 Ml Sdv) 4 mg IVPUSH Q4H PRN PRN Reason: Nausea/Vomiting Last Admin: 08/29/20 16:44 Dose: 4 mg Documented by: Oxycodone/Acetaminophen (Acetaminophen/Oxycodone 325-5 Mg Tab) 1 tab PO Q4H PRN PRN Reason: Pain (moderate 4-6) Oxycodone/Acetaminophen (Acetaminophen/Oxycodone 325-5 Mg Tab) 2 tab PO Q4H PRN PRN Reason: Pain (severe 7-10) Discontinued Medications Cefazolin Sodium (Cefazolin 1 Gm Vial) Confirm Administered Dose 2 gm .ROUTE .[facility] ONE Stop: 08/29/20 07:14 Citric Acid/Sodium Citrate (Citric Acid/Sodium Citrate Solution 30 Ml Cup) 30 ml PO ONETIME ONE Stop: 08/29/20 06:31 Last Admin: 08/29/20 07:23 Dose: 30 ml Documented by: Fentanyl (Fentanyl 100 Mcg/2 Ml Sdv) Confirm Administered Dose 100 mcg .ROUTE .[facility] ONE Stop: 08/29/20 08:07 Lactated Ringer's (Ringers, Lactated) 1,000 mls @ [facility] Last Admin: 08/29/20 06:38 Dose: 125 mls/hr Documented by: Cefazolin Sodium/Dextrose 2 gm (/ Premix) 50 mls @ 100 mls/hr IV ONETIME ONE Stop: 08/29/20 08:14 Last Admin: 08/29/20 10:14 Dose: Not Given Documented by: Oxytocin/Lactated Ringer's (Pitocin In Lr 10 Units/1,000 Ml) 10 unit in 1,000 mls @ 100 [facility] Lactated Ringer's (Ringers, Lactated) Confirm Administered Dose 2,000 mls @ as directed .ROUTE .[facility] ONE Stop: 08/29/20 07:14 Dextrose/Lactated Ringer's (Dextrose 5%-Lactated Ringers) 1,000 mls @ 125 [facility]ls[facility] Stop: 08/29/20 18:14 Last Admin: 08/29/20 12:09 Dose: 125 mls/hr Documented by: Lactated Ringer's (Ringers, Lactated) 500 mls @ 250 mls/hr IV ONETIME ONE Stop: 08/29/20 18:30 Last Admin: 08/29/20 16:47 Dose: 250 mls/hr Documented by: Ketorolac Tromethamine (Ketorolac 30 Mg/Ml Sdv) Confirm Administered Dose 30 mg .ROUTE .[facility] ONE Stop: 08/29/20 07:14 Ketorolac Tromethamine (Ketorolac 30 Mg/Ml Sdv) 30 mg IVPUSH Q6H [facility] Stop: 08/30/20 02:31 Last Admin: 08/30/20 02:27 Dose: 30 mg Documented by: Metoclopramide HCl (Metoclopramide 10 Mg/2 Ml Sdv) 10 mg IVPUSH ONETIME ONE Stop: 08/29/20 06:31 Last Admin: 08/29/20 07:23 Dose: 10 mg Documented by: Miscellaneous Medication (Phenylephrine Hcl In 0.9% Nacl 1 Mg/10 Ml Syringe) Confirm Administered Dose 1 mg .ROUTE .STK-MED ONE Stop: 08/29/20 07:49 Morphine Sulfate (Morphine Pf 10 Mg/10 Ml Sdv) Confirm Administered Dose 10 mg .ROUTE .STK-MED ONE Stop: 08/29/20 07:14 Ondansetron HCl (Ondansetron 4 Mg/2 Ml Sdv) Confirm Administered Dose 4 mg .ROU TE .STK-MED ONE Stop: 08/29/20 07:14 Oxytocin (Oxytocin 10 Units/1 Ml Sdv) Confirm Administered Dose 20 unit .ROUTE .STK-MED ONE Stop: 08/29/20 07:14 Sodium Chloride (Sodium Chloride 0.9% 10 Ml Syringe) 10 ml FLUSH ASDIRECTED PRN PRN Reason: Keep Vein Open
== END 2020-08-31 12:05 | disposition home or self-care (01) | DRG 788 ==
LOC: JD.OB 05:10
PROVIDERS: ADMIT Obstetrics & Gynecology; ATTEND Obstetrics & Gynecology
PROC: 10D00Z1 Extraction of Products of Conception, Low, Open Approach (ICD-10-PCS; principal; 2020-08-29)
DX: O34.211 Maternal care for low transverse scar from previous cesarean delivery (principal); Z37.0 Single live birth; O99.013 Anemia complicating pregnancy, third trimester; D64.9 Anemia, unspecified; O99.62 Diseases of the digestive system complicating childbirth; K21.9 Gastro-esophageal reflux disease without esophagitis; O99.214 Obesity complicating childbirth; E66.9 Obesity, unspecified; Z20.822 Contact with and (suspected) exposure to COVID-19; Z3A.39 39 weeks gestation of pregnancy; Z87.891 Personal history of nicotine dependence
CPT/HCPCS: 01961; 36415; 59025; 85025; 85027; 86592; 86803; 86850; 86900; 86901; A9270-GY; J0690; J1885; J2270; J2370; J2405; J2590; J2765; J3010; J7120; J7121; U0002

== ENCOUNTER 2021-04-14 23:23 | Emergency (ER) | payer SELFPAY ==
[2021-04-15] MEDS ORDERED: Morphine 4 MG/ML Syringe IVPUSH ONE (00:45)
[2021-04-15] MEDS ORDERED: Morphine 4 MG/ML Syringe ONE (00:47)
[2021-04-15] MEDS ORDERED: Ketorolac 15 MG/ML SDV IVPUSH ONE (01:20)
[2021-04-15] MEDS ORDERED: Misoprostol 200 MCG Tab PO STA (01:20)
--- NOTE | 2021-04-15 01:40 | EDM.PDOC ---
ED HPI GENERAL MEDICAL PROBLEM - General Chief Complaint: ENVIRONMENTAL REMEDIATION CONSULTANT Problem Stated Complaint: ABD PAIN/BLEEDING/11 WKS PRGNANT Time Seen by Provider: 04/15/21 01:36 Source of Information: Reports: Patient History Limitations: Reports: No Limitations - History of Present Illness INITIAL COMMENTS - FREE TEXT/NARRATIVE: Patient is a 25-year-old female presented to the emergency room with a chief complaint of lower abdominal cramping and vaginal bleeding. Patient is approximate 11 weeks . She states she had an ultrasound done about a week and a half ago which demonstrated no cardiac activity. She thought she had passed it as she had noticed some brownish discharge. However, over the weekend she developed some mild pelvic cramping. She reports that the cramping got significantly worse after a trip and fall today. No direct trauma to the abdomen. She states pain is severe. She reports passing moderately sized clots. She states she is changing her pads every 15 minutes. Nothing seems to make symptoms better or worse. Abdomen Pain Score (Numeric/FACES): 10 - Related Data Allergies Allergy/AdvReac Type Severity Reaction Status Date / Time No Known Allergies Allergy Verified 08/28/20 15:34 Home Meds: Home Meds Mv-Mn/Iron/FA/Herbal/Digestive [ One Tablet] 1 tab PO DAILY 04/14/19 [History] Ferrous Sulfate [Iron] 325 mg PO BID #0 04/16/19 [Rx] Ibuprofen [Motrin] 600 mg PO Q6H PRN tablet 08/31/20 [Rx] Phenyleph/Pramoxin/Glycr/w.Pet [Preparation H Cream] 26 gm RC TID #1 cream..g. 04/15/21 [Rx] Sennosides/Docusate Sodium [Senna-Docusate Sodium Tablet] 1 each PO BID #20 tablet 04/15/21 [Rx] Past Medical History HEENT History: Reports: Other (See Below) Other HEENT History: Wears glasses Gastrointestinal History: Reports: GERD ENVIRONMENTAL REMEDIATION CONSULTANT History: Reports: , Other (See Below) Other ENVIRONMENTAL REMEDIATION CONSULTANT History: single umbilical artery-current Endocrine/Metabolic History: Reports: Obesity/BMI 30+ - Infectious Disease History Infectious Disease History: Reports: None - Past Surgical History HEENT Surgical History: Reports: Oral Surgery Female Surgical History: Reports: Section Other Female Surgeries/Procedures: 2012, 2014, 2018,2020 Social & Family History - Family History Family Medical History: No Pertinent Family History - Tobacco Use Tobacco Use Status *Q: Never Tobacco User - Caffeine Use Caffeine Use: Reports: Coffee - Recreational Drug Use Recreational Drug Use: No - Living Situation & Occupation Living situation: Reports: (), with Family (3 sons) Occupation: Employed ([employer]) ED ROS GENERAL - Review of Systems Review Of Systems: See Below Free Text/Narrative/Comment: In addition to that documented in the HPI above, the additional ROS was obtained: Constitutional: Denies fevers or chills Eyes: Denies vision changes ENMT: Denies sore throat CV: Denies chest pain Resp: Denies SOB GI: Denies vomiting or diarrhea : Denies painful urination MSK: Denies recent trauma Skin: Denies new rashes Neuro: Denies new numbness or tingling or weakness Endocrine: Denies unexpected weight loss Heme: Denies bleeding disorders ED EXAM - Physical Exam Exam: See Below Text/Narrative:: I have reviewed the triage vital signs Const: Extremely uncomfortable in appearance, writhing around in bed but nontoxic. Nondiaphoretic. Well nourished, well developed, appears stated age Eyes: Pupils Equal and reactive to light bilaterally, no conjunctival injection HENT: No signs of trauma or swelling, Neck supple without meningismus CV: Regular Rate Rhythm, Warm, well-perfused extremities RESP: Unlabored respiratory effort GI: soft, non-tender, non-distended, no masses : VICK Pollock present. Mild amount of active bleeding in the vaginal vault. No products of conception visualized. MSK: No gross deformities appreciated Skin: Warm, dry. 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 Sensation and motor function of extremities grossly intact. Psych: Appropriate mood and affect. Course - Vital Signs Last Recorded V/S: Last Vital Signs Temp 36.7 C 04/14/21 23:47 Pulse 78 04/15/21 03:00 Resp 16 04/15/21 03:00 BP 128/80 04/15/21 03:00 Pulse Ox 99 04/15/21 03:00 - Orders/Labs/Meds Labs: Laboratory Tests 04/15/21 04/15/21 Range/Units 00:03 00:03 WBC 9.63 (3.98-10.04) K/mm3 RBC 4.57 (3.98-5.22) M/mm3 Hgb 12.6 D (11.2-15.7) gm/dl Hct 38.2 (34.1-44.9) % MCV 83.6 D (79.4-94.8) fl MCH 27.6 (25.6-32.2) pg MCHC 33.0 (32.2-35.5) g/dl RDW Std Deviation 42.8 (36.4-46.3) fL Plt Count 289 D (182-369) K/mm3 MPV 10.4 (9.4-12.3) fl Neut % (Auto) 60.9 (34.0-71.1) % Lymph % (Auto) 30.4 (19.3-51.7) % Arthur % (Auto) 7.1 (4.7-12.5) % Eos % (Auto) 1.0 (0.7-5.8) Baso % (Auto) 0.4 (0.1-1.2) % Neut # (Auto) 5.86 (1.56-6.13) K/mm3 Lymph # (Auto) 2.93 (1.18-3.74) K/mm3 Arthur # (Auto) 0.68 H (0.24-0.36) K/mm3 Eos # (Auto) 0.10 (0.04-0.36) K/mm3 Baso # (Auto) 0.04 (0.01-0.08) K/mm3 Blood Type AB POSITIVE Meds: Medications Discontinued Medications Generic Name Dose Route Start Last Admin Trade Name Freq PRN Reason Stop Dose Admin Ketorolac Tromethamine 15 mg 04/15/21 01:20 04/15/21 01:22 Ketorolac 15 Mg/Ml Sdv IVPUSH 04/15/21 01:21 15 mg ONETIME ONE Administration Misoprostol 400 mcg 04/15/21 01:20 04/15/21 01:24 Misoprostol 200 Mcg Tab PO 04/15/21 01:21 400 mcg STAT STA Administration Morphine Sulfate 4 mg 04/15/21 00:45 04/15/21 00:53 Morphine 4 Mg/Ml Syringe IVPUSH 04/15/21 00:46 4 mg ONETIME ONE Administration Morphine Sulfate Confirm 04/15/21 00:47 04/15/21 00:53 Morphine 4 Mg/Ml Syringe Administered 04/15/21 00:48 Not Given Dose 4 mg .ROUTE .STK-MED ONE Departure - Departure Time of Disposition: 02:48 Disposition: Home, Self-Care 01 Clinical Impression: Miscarriage - Discharge Information Prescriptions: Phenyleph/Pramoxin/Glycr/w.Pet [Preparation H Cream] 26 gm RC TID #1 cream..g. Sennosides/Docusate Sodium [Senna-Docusate Sodium Tablet] 1 each PO BID #20 tablet Instructions: Miscarriage, [id number] Referrals: Fransisca Spring MD [Primary Care Provider] - Forms: ED Department Discharge Sepsis Event Note (ED) - Focused Exam Vital Signs: Vital Signs Temp Pulse Resp BP Pulse Ox 04/15/21 03:00 78 16 128/80 99 04/14/21 23:47 36.7 C 92 20 136/99 H 100 - Assessment/Plan Assessment:: Patient is a 25-year-old female presented to the emergency room with vaginal bleeding and abdominal cramping. Patient remained hemodynamically stable while in the emergency room. Hemoglobin within normal limits. Vaginal exam demonstrates vaginal bleeding. Patient did pass a large clot while in the emergency room. Cramping is subsequently stopped. I did discuss this case previously with on-call ENVIRONMENTAL REMEDIATION CONSULTANT Dr. Haile. He did recommend Cytotec administration. At this point, I believe patient's miscarriage is complete and she is not requiring a D&C. I recommended her follow-up with ENVIRONMENTAL REMEDIATION CONSULTANT in the next 24 to 48 hours.
== END 2021-04-15 03:00 | disposition home or self-care (01) ==
LOC: JD.ED 23:23
DX: O03.9 Complete or unspecified spontaneous abortion without complication (principal); K21.9 Gastro-esophageal reflux disease without esophagitis; E66.9 Obesity, unspecified; Z3A.11 11 weeks gestation of pregnancy; Z68.38 Body mass index [BMI] 38.0-38.9, adult
CPT/HCPCS: 36415; 85025; 86900; 86901; 96374; 96375; 99284; A9270; J1885; J2270

== ENCOUNTER 2022-02-26 18:36 | Emergency (ER) | payer BC, MEDICAID ==
[2022-02-26] MEDS ORDERED: Sodium Chloride 0.9% 10 ML Syringe FLUSH PRN (18:51)
[2022-02-26] MEDS ORDERED: HYDROmorphone 1 MG/ML Syringe IVPUSH STA ×2 (18:56→21:18)
[2022-02-26] MEDS ORDERED: Ondansetron 4 MG/2 ML SDV IVPUSH ONE (18:56)
[2022-02-26] MEDS ORDERED: Sodium Chloride 0.9% 1,000 ML IV ONE (19:00)
[2022-02-26] MEDS ORDERED: Ketorolac 30 MG/ML SDV IVPUSH ONE (20:01)
[2022-02-26] MEDS ORDERED: Misoprostol 100 MCG Tab PO ONE (21:17)
== END 2022-02-27 00:22 | disposition home or self-care (01) ==
LOC: JD.ED 18:36
DX: O03.9 Complete or unspecified spontaneous abortion without complication (principal)
CPT/HCPCS: 36415; 76817; 85014; 85018; 86850; 86900; 86901; 96361; 96374; 96375; 96376; 99284; A9270; J1170; J1885; J2405; J3490; J7030

== ENCOUNTER 2022-04-04 23:00 | Emergency (ER) | payer MEDICAID ==
[2022-04-04] MEDS ORDERED: Metoclopramide 10 MG/2 ML SDV IVPUSH ONE (23:05)
== END 2022-04-05 01:55 | disposition home or self-care (01) ==
LOC: JD.ED 23:00
DX: R55 Syncope and collapse (principal); R11.2 Nausea with vomiting, unspecified; E66.9 Obesity, unspecified; Z72.0 Tobacco use
CPT/HCPCS: 80306; 96374; 99284; J2765